=== PATIENT | female | born 1980 | race African-American/Black ===

== ENCOUNTER 2016-11-08 07:01 | Emergency (ER) | payer MEDICARE, MEDICAID ==
[~2016-11-08] VITALS: Ht 172.7 cm; Wt 100.0 kg
[~2016-11-08 07:01] MED LIST: ALBU2.5V13 NEB
[2016-11-08 07:24] VITALS: BP 119/80
== END 2016-11-08 09:29 | disposition left against medical advice (07) ==
LOC: ER 08:58
DX: Z53.21 Procedure and treatment not carried out due to patient leaving prior to being seen by health care provider (principal)

== ENCOUNTER 2018-06-22 21:45 | Emergency (ER) | payer MEDICARE, MEDICAID ==
[~2018-06-22] VITALS: Ht 172.7 cm; Wt 100.0 kg
[2018-06-22 21:50] VITALS: BP 126/62
[2018-06-22] MEDS ORDERED: ACETAMINOPHEN 325MG TABLET PO ONE (22:15)
== END 2018-06-22 22:35 | disposition home or self-care (01) ==
LOC: ER 21:47
DX: S20.229A Contusion of unspecified back wall of thorax, initial encounter (principal); J45.909 Unspecified asthma, uncomplicated; Z79.899 Other long term (current) drug therapy; X58.XXXA Exposure to other specified factors, initial encounter; Y93.89 Activity, other specified; Y92.89 Other specified places as the place of occurrence of the external cause; Y99.8 Other external cause status
CPT/HCPCS: 99283

== ENCOUNTER 2018-07-06 13:23 | Emergency (ER) | payer MEDICARE, MEDICAID ==
[~2018-07-06] VITALS: Ht 165.1 cm; Wt 98.0 kg
[2018-07-06 13:30] VITALS: BP 135/88
== END 2018-07-06 17:01 | disposition left against medical advice (07) ==
LOC: ER 14:08
DX: Z53.21 Procedure and treatment not carried out due to patient leaving prior to being seen by health care provider (principal)